=== PATIENT | female | born 1950 | race Caucasian/White ===

== ENCOUNTER 2018-09-01 09:53 | Emergency (ER) | payer MEDICARE ==
--- NOTE | 2018-09-01 10:00 | ED Physician Documentation ---
General Adult - HISTORIAN Historian: patient - HPI Stated Complaint: cough Chief Complaint: Cough/ Upper Respiratory Onset: days ago (6) Timing: still present Severity: moderate Further Comments: yes (She reports the cough started over a week ago. She has had fever for several days. She has productive cough. She does smoke. She also has fatigue and sinus pain) Last known Well Code/Unknown Code: Unknown - ROS CONST: fever, sweating EYES/ENT: sore throat, nasal drainage, nasal congestion. denies: problems with vision CVS/RESP: cough. denies: chest pain, shortness of breath GI/: none MS/SKIN/LYMPH: denies: rash NEURO/PSYCH: headache - PAST HX Past History: hypertension Allergies/Adverse Reactions: Allergies Allergy/AdvReac Type Severity Reaction Status Date / Time No Known Allergies Allergy Verified 09/01/18 10:12 Home Medications: Ambulatory Orders Medication Instructions Recorded Atorvastatin Calcium 40 mg PO DAILY 09/01/18 Hydrocodone/Acetaminophen 1 tab PO Q4H PRN 09/01/18 [Hydrocodone-Acetamin 5-325 mg] Levothyroxine Sodium 88 mcg PO DAILY 09/01/18 Lisinopril 10 mg PO DAILY 09/01/18 amLODIPine BESYLATE [Norvasc] 5 mg PO DAILY 09/01/18 - SOCIAL HX Smoking History: cigarettes Alcohol Use: none Drug Use: none - FAMILY HX Family History: No - REVIEWED ASSESSMENTS Nursing Assessment Reviewed: Yes Vitals Reviewed: Yes Progress - Progress Progress: 1100: Discussed results and plan. She and spouse are agreeable DG ED Results Lab/Radiology - Radiology Radiology Impressions: PA and lateral chest Clinical history: Cough and fever. Findings: Examination of the chest in PA and lateral views with no prior films for comparison demonstrates the lungs to be hyperinflated. There is prominence of the interstitial markings and may be chronic. There is no coalescent infiltrate and no pleural effusion. Cardiovascular and mediastinal silhouettes are within normal limits for the patient's age. Impression: 1. Hyperinflation. 2. Prominent interstitial changes in the lungs. These may be chronic although pulmonary vascular congestion could give a similar appearance. Electronically signed on September 01, 2018 11:03:12 AM CDT by: Reinaldo [place] [facility] Adult Physical Exam - PHYSICAL EXAM GENERAL APPEARANCE: no distress EENT: eye inspection normal, ENT inspection normal, pharynx normal, no signs of dehydration, TM's nml NECK: normal inspection RESPIRATORY: wheezes, rhonchi (improved post neb @1030) CVS: reg rate & rhythm, heart sounds normal, equal pulses ABDOMEN: soft, no distension SKIN: warm/dry, normal color EXTREMITIES: non-tender, no edema NEURO: oriented X3 Discharge Clincal Impression: Bronchitis Referrals: Aubree Escobedo, [facility] INSPECTOR [Primary Care Provider] - 2 Days Comments: 1. Azithromycin (zpack) as directed) 2. Medrol dose pack as directed tomorrow starting 3. Ipratroprium /albuterol in neb machine every 6 hours as needed for cough 4. See PCP in 2-4 days 5. Return to ER for any increasing concerns STOP SMOKING Condition: Stable Disposition: 01 HOME, SELF-CARE Decision to Admit: NO Date of Decison to Admit: 09/01/18 Decision Time: 11:13
[2018-09-01 10:19] VITALS: BP 123/62
[2018-09-01] MEDS ORDERED: methylPREDNISolone SOD SUCC 125 MG/2 ML VIAL IVP ONE (10:19)
[2018-09-01] MEDS ORDERED: IPRATROPIUM/ALBUTEROL SULFATE 3 ML AMPUL.NEB NEB ONE (10:19)
[2018-09-01 10:44] LABS: BASOPHILS % 0.7 % (0.0-1.5); EOSINOPHILS % 3.5 % (0.0-6.8); MONOCYTES % 9.7 % (0.0-11.0); NEUTROPHILS # 4.4 # k/uL (1.4-7.7)
[2018-09-01 10:55] LABS: eGFR (Non-African) > 60
--- NOTE | 2018-09-01 14:09 | Diagnostic Imaging Report ---
CHELY PORTER [facility] [address] [facility].[address] [id number] Report Submission Date: September 01, 2018 11:03:12 AM CDT Patient Study Name: NATHAN PICKENS Date: September 01, 2018 10:36:10 AM CDT Modality Type: DX Gender: F Description: CHEST 2VIEW : 52 Institution: [facility] Physician: CHELY PORTER PA and lateral chest Clinical history: Cough and fever. Findings: Examination of the chest in PA and lateral views with no prior films for comparison demonstrates the lungs to be hyperinflated. There is prominence of the interstitial markings and may be chronic. There is no coalescent infiltrate and no pleural effusion. Cardiovascular and mediastinal silhouettes are within normal limits for the patient's age. Impression: 1. Hyperinflation. 2. Prominent interstitial changes in the lungs. These may be chronic although pulmonary vascular congestion could give a similar appearance. Electronically signed on September 01, 2018 11:03:12 AM CDT by: Reinaldo ROLAND
== END 2018-09-01 11:16 | disposition home or self-care (01) ==
LOC: ED 09:53
DX: J40 Bronchitis, not specified as acute or chronic (principal); Z72.0 Tobacco use
CPT/HCPCS: 36415; 71046; 80053; 85025; 94640; 96374; 99283; 99284; J2930; S1016